=== PATIENT | female | born 1975 | race Caucasian/White ===

== ENCOUNTER 2024-11-23 05:46 | Day surgery (SDC) | payer OTHER, SELFPAY ==
[2024-11-13 14:01] VITALS: BMI 21.9
[2024-11-23] VITALS (8 sets, daily range): BP systolic 97–107; BP diastolic 55–69; BMI 21.9
[2024-11-23] MEDS: TYLENOL 1000 MG PO (06:27)
[2024-11-23] MEDS: NORMOSOL-R/PLASMALYTE-A 1000 IV (06:27)
[2024-11-23] MEDS: MOBIC 15 MG PO (06:27)
[2024-11-23] MEDS: DILAUDID 0.25 MG IV (08:18)
== END 2024-11-23 09:26 | disposition home or self-care (01) ==
LOC: SDS 05:46
PROVIDERS: ATTENDING PHYSICIAN Orthopaedic Surgery; FAMILY PHYSICIAN Family Medicine; REFERRING PHYSICIAN Obstetrics & Gynecology
DX: S83.239A Complex tear of medial meniscus, current injury, unspecified knee, initial encounter (principal); X58.XXXA Exposure to other specified factors, initial encounter
CPT/HCPCS: 29881; 36415; 93005